=== PATIENT | female | born 1945 | race Caucasian/White ===

== ENCOUNTER 2017-10-28 14:20 | Inpatient (IN) | payer OTHER ==
[~2017-10-28] VITALS: Ht 162.6 cm; Wt 52.3 kg
[~2017-10-28 14:20] MED LIST: Advair HFA 115/21 IH; Ambien PO; Ativan IV; Colace PO; Folvite PO; Habitrol,Nicoderm CQ TD; Librium PO; Milk Of Magnesia,MOM PO; Protonix PO; Rocephin IV; SALINE FLUSH 5 M5 ML IV; SPIRIVA1 INHALATI IH; Solu-MEDROL IV; Thiamine,Vitamin B1 PO; Tylenol Regular Stre PO; Xanax PO; Xopenex IH; Zofran IV
[2017-10-28 16:02] LABS: ALBUMIN 4.4 g/dL (3.2-4.8); CHLORIDE 100 mEq/L (99-109); SODIUM 140 mEq/L (136-147)
[2017-10-28 16:03] LABS: HEMATOCRIT 44.2 % (36.0-46.0); HEMOGLOBIN 14.6 G/DL (11.9-15.5); MCH 29.3 PG (29.0-34.0); MCV 88.6 FL (83-99); RBC DIS.WIDTH-CV 11.9 % (11.8-14.6); RBC DIS.WIDTH-SD 38.5 % (39-53); RED BLOOD COUNT 4.99 M/uL (3.80-5.20); WHITE BLOOD COUNT 9.7 K/uL (4.1-10.2)
[2017-10-28 16:04] LABS: GLUCOSE 112 mg/dL (70-99)
[2017-10-28 16:06] LABS: TOTAL BILIRUBIN 0.4 mg/dL (0.0-1.0)
[2017-10-28 16:08] LABS: ALKALINE PHOSPHATASE 102 IU/L (3-129); CREATININE 0.7 mg/dL (0.6-1.3); GFR ESTIMATE (CALCULATED) > 59 mL/min/
[2017-10-28 16:09] LABS: UREA NITROGEN (BUN) 7 mg/dL (9-23)
[2017-10-28 16:10] LABS: AST (GOT) 17 IU/L (2-34); DIRECT BILIRUBIN 0.2 mg/dL (0.0-0.3)
[2017-10-28 16:11] LABS: ALT (GPT) 8 IU/L (3-49)
[2017-10-28 16:16] LABS: APPEARANCE SL.HAZY ((CLEAR)); BILIRUBIN NEGATIVE; BLOOD SMALL; COLOR YELLOW ((YELLOW)); GLUCOSE (STRIP) NEGATIVE; KETONES NEGATIVE; LEUKOCYTES MODERATE; NITRITE POSITIVE; PROTEIN (STRIP) NEGATIVE; SPECIFIC GRAVITY 1.005 (1.000-1.030); UROBILINOGEN 0.2 MG/DL (0.2-1.0)
[2017-10-28 16:19] LABS: TROP-I INTERPRETATION NEGATIVE; TROPONIN-I < 0.01 ng/mL (0.0-0.30)
[2017-10-28 16:35] LABS: BACTERIA RARE /HPF; EPITHELIAL CELLS NONE SEEN /HPF; MUCUS TRACE /LPF; RED BLOOD CELLS 0-5 /HPF (0-5); UCUL ADDED? YES
[2017-10-28 17:00] LABS: PLAT.SUFFICIENCY ADEQUATE
[2017-10-28 17:02] LABS: PLATELET COUNT 253 K/uL (156-360)
[2017-10-28] MEDS ORDERED: METOPROLOL SUCC50 MG PO (19:16)
[2017-10-28] MEDS ORDERED: BREO ELLIPTA I1 EACH IH (19:16)
[2017-10-28] MEDS ORDERED: TUMS500 MG PO (19:16)
[2017-10-28] MEDS ORDERED: AMLODIPINE BESYL5 MG PO (19:17)
[2017-10-28] MEDS ORDERED: SPIRIVA RESPIMAT4 GM IH (19:17)
[2017-10-28 20:30] VITALS: BP 138/82
[2017-10-28 23:24] VITALS: BP 151/66
[2017-10-29 03:53] VITALS: BP 134/64
[2017-10-29 07:45] VITALS: BP 144/75
[2017-10-29 07:51] LABS: HEMATOCRIT 41.7 % (36.0-46.0); HEMOGLOBIN 13.7 G/DL (11.9-15.5); MCH 28.7 PG (29.0-34.0); MCHC 32.9 G/DL (30.0-36.0); MCV 87.2 FL (83-99); PLATELET COUNT 248 K/uL (156-360); RBC DIS.WIDTH-CV 11.9 % (11.8-14.6); RBC DIS.WIDTH-SD 38.2 % (39-53); RED BLOOD COUNT 4.78 M/uL (3.80-5.20); WHITE BLOOD COUNT 7.7 K/uL (4.1-10.2)
[2017-10-29 08:30] LABS: CHLORIDE 101 MEQ/L (99-109); CREATININE 0.5 MG/DL (0.6-1.3); GFR ESTIMATE (CALCULATED) > 59 mL/min/; SODIUM 140 MEQ/L (136-147); UREA NITROGEN (BUN) 9 mg/dL (9-23)
[2017-10-29 08:34] LABS: GLUCOSE 173 mg/dL (70-99); POTASSIUM 5.3 MEQ/L (3.7-5.4)
[2017-10-29 12:33] VITALS: BP 130/66
[2017-10-29 15:53] VITALS: BP 132/62
[2017-10-29 19:35] VITALS: BP 146/72
[2017-10-30 00:07] VITALS: BP 121/59
[2017-10-30 03:39] VITALS: BP 117/58
[2017-10-30 06:31] LABS: BASOPHIL (%) 0.1 % (0-1); EOSINOPHIL (%) 0 % (0-5); HEMATOCRIT 37.4 % (36.0-46.0); HEMOGLOBIN 12.1 G/DL (11.9-15.5); IMMATURE GRANULOCYTE (%) 1.1 % (0.0-0.7); LYMPHOCYTE (%) 2.3 % (15-42); LYMPHOCYTE COUNT 0.5 K/uL (1.0-2.8); MCH 28.3 PG (29.0-34.0); MCHC 32.4 G/DL (30.0-36.0); MCV 87.4 FL (83-99); MONOCYTE (%) 4.8 % (3-12); MONOCYTE COUNT 1.1 K/uL (0-0.8); NEUTROPHIL (%) 91.7 % (45-76); NEUTROPHIL COUNT 21.1 K/uL (1.8-6.4); PLATELET COUNT 240 K/uL (156-360); RBC DIS.WIDTH-SD 38.5 % (39-53); RED BLOOD COUNT 4.28 M/uL (3.80-5.20)
[2017-10-30 06:55] LABS: CHLORIDE 102 MEQ/L (99-109); CREATININE 0.5 MG/DL (0.6-1.3); GFR ESTIMATE (CALCULATED) > 59 mL/min/; GLUCOSE 140 mg/dL (70-99); POTASSIUM 4.4 MEQ/L (3.7-5.4); SODIUM 139 MEQ/L (136-147); UREA NITROGEN (BUN) 16 mg/dL (9-23)
[2017-10-30 07:39] VITALS: BP 131/67
[2017-10-30] MEDS ORDERED: PREDNISONE5 M1 PO (12:01)
[2017-10-30] MEDS ORDERED: AUGMENTIN875 MG PO (12:03)
== END 2017-10-30 13:02 | disposition home health service (06) | DRG 872 ==
LOC: EME 14:20 → EDOF 19:05 → ENRESERV 19:08 → 5SOUTH 20:05
PROVIDERS: Emergency Medicine; Hospitalist
DX: A41.9 Sepsis, unspecified organism (principal); J44.1 Chronic obstructive pulmonary disease with (acute) exacerbation; J44.0 Chronic obstructive pulmonary disease with (acute) lower respiratory infection; J20.9 Acute bronchitis, unspecified; E87.2 Acidosis; Z91.19 Patient's noncompliance with other medical treatment and regimen; H54.7 Unspecified visual loss; I10 Essential (primary) hypertension; R63.6 Underweight; Z68.1 Body mass index [BMI] 19.9 or less, adult; Z87.891 Personal history of nicotine dependence
CPT/HCPCS: 70450; 71046; 71275; 80048; 80076; 81003; 83605; 84484; 85025; 85027; 87040; 87070; 87086 GA; 87205; 93005; 94640; 94799; 99281; 99285; J0295; J0696; J1644; J2930; J7030; J7050; J7512